=== PATIENT | male | born 1960 | race Caucasian/White ===

== ENCOUNTER 2016-10-12 19:01 | Emergency (ER) | payer OTHER ==
[~2016-10-12] VITALS: Ht 182.8 cm; Wt 100.2 kg
[~2016-10-12 19:01] MED LIST: ACARBOSE50 MG PO; ASPIRIN325 MG PO; BENADRYL25 M1 PO; CELLCEPT250 MG PO; CELLCEPT500 MG PO; CIPRO750 MG PO; COREG25 MG; COUMADIN0.5 M1 PO; CYMBALTA30 MG; CYMBALTA30 MG PO; ERGOCALCIFER50000 IU PO; FLOMAX0.4 MG; FLUTICAS P0.05 MG/AC NS; GABAPENTIN TAB600 MG; GABAPENTIN600 MG PO; GLIMEPIRIDE2 MG PO; INSULIN-HUMA100 U/ML; K-DUR20 MEQ; LANTUS100 U/ML SC; LASIX40 MG; LASIX40 MG PO; LISINOPRIL10 MG PO; LORTAB 7.5/5001 TA1; METOCLOPRAMIDE10 MG; NEXIUM40 MG; NEXIUM40 MG PO; NOVAPLUS TACROLI1 MG; OXYCODONE AND A1 T11 PO; PERIACTIN4 MG; PLAVIX75 MG; PRECOSE25 MG PO; PROGRAF1 MG PO; PROPRANOLOL HCL40 M1 PO; REGLAN10 MG PO; RESTORIL30 MG; SIMVASTATIN20 MG PO; SMZ-TMP 400 MG-1 TAB PO; STOOL SOFTENER100 MG PO; TEMAZEPAM30 MG PO; VICTOZA6 MG/ML SC; ZITHROMAX Z PA250 MG PO; ZOCOR20 MG PO
[2016-10-12 19:13] VITALS: BP 123/80
== END 2016-10-12 19:40 | disposition home or self-care (01) ==
LOC: ED 19:01
DX: E16.2 Hypoglycemia, unspecified (principal); Z79.899 Other long term (current) drug therapy; Z88.1 Allergy status to other antibiotic agents; Z88.8 Allergy status to other drugs, medicaments and biological substances

== ENCOUNTER → 2017-04-28 | Outpatient (CLI) | payer OTHER ==
[2017-04-28 10:28] LABS: BASO % 0.7 % (0.0-1.0); EOS # 0.2 10*3/uL (0.0-0.4); EOS % 3.3 % (1.0-4.0); HEMATOCRIT 38.1 % (42.0-52.0); HEMOGLOBIN 12.5 g/dl (14.0-18.0); LYMPH # 1.8 10*3/uL (1.3-4.4); LYMPH % 32.2 % (27.0-41.0); MEAN CELL VOLUME 88.4 fl (80.0-94.0); MEAN CORPUSCULAR HGB CONC 32.8 g/dl (33.0-37.0); MEAN PLATELET VOLUME 9.8 fl (9.6-12.3); MONO # 0.7 10*3/uL (0.1-1.0); MONO % 12.7 % (3.0-9.0); NEUT # 2.8 10*3/uL (2.3-7.9); NEUT % 50.9 % (47.0-73.0); PLATELET COUNT AUTOMATED 250 10*3/uL (130-400); RED BLOOD COUNT 4.31 10*6/uL (4.50-5.90); RED CELL DISTRI WIDTH 16.1 % (0-14.5); WHITE BLOOD COUNT 5.5 10*3/uL (4.8-10.8)
[2017-04-28 10:55] LABS: ALBUMIN 3.5 gm/dl (3.1-4.5); CREATININE 2.02 mg/dL (0.70-1.30); POTASSIUM 2.7 mmol/L (3.5-5.1); TOTAL PROTEIN 7.8 gm/dL (6.4-8.2)
[2017-04-28 11:41] LABS: VITAMIN D, 25-HYDROXY 34.3 ng/mL (30-100)
== END | disposition home or self-care (01) ==
LOC: LAB 09:50
PROVIDERS: Nurse Practitioner
DX: I10 Essential (primary) hypertension (principal); E10.29 Type 1 diabetes mellitus with other diabetic kidney complication; E11.9 Type 2 diabetes mellitus without complications; E83.51 Hypocalcemia; Z94.83 Pancreas transplant status; Z94.0 Kidney transplant status

== ENCOUNTER → 2017-07-28 | Outpatient (CLI) | payer OTHER ==
[2017-07-28 13:56] LABS: BASO % 0.7 % (0.0-1.0); EOS # 0.1 10*3/uL (0.0-0.4); EOS % 2.3 % (1.0-4.0); HEMOGLOBIN 11.6 g/dl (14.0-18.0); LYMPH # 0.8 10*3/uL (1.3-4.4); LYMPH % 18.5 % (27.0-41.0); MEAN CORPUSCULAR HGB 28.1 pg (27.0-31.0); MEAN CORPUSCULAR HGB CONC 30.5 g/dl (33.0-37.0); MONO # 0.5 10*3/uL (0.1-1.0); NEUT # 2.9 10*3/uL (2.3-7.9); NEUT % 67.3 % (47.0-73.0); PLATELET COUNT AUTOMATED 222 10*3/uL (130-400); RED BLOOD COUNT 4.13 10*6/uL (4.50-5.90); RED CELL DISTRI WIDTH 16.3 % (0-14.5); WHITE BLOOD COUNT 4.3 10*3/uL (4.8-10.8)
[2017-07-28 14:13] LABS: ALBUMIN 3.4 gm/dl (3.1-4.5); CREATININE 1.89 mg/dL (0.70-1.30); POTASSIUM 3.7 mmol/L (3.5-5.1); TOTAL PROTEIN 7.3 gm/dL (6.4-8.2)
[2017-07-28 15:36] LABS: PTH INTACT 50.9 pg/mL (14.0-72.0); VITAMIN D, 25-HYDROXY 39.8 ng/mL (30-100)
== END | disposition home or self-care (01) ==
LOC: LAB 13:24
PROVIDERS: Nurse Practitioner
DX: I10 Essential (primary) hypertension (principal); E10.29 Type 1 diabetes mellitus with other diabetic kidney complication; Z94.0 Kidney transplant status; E83.51 Hypocalcemia

== ENCOUNTER → 2017-11-05 | Outpatient (CLI) | payer OTHER ==
[2017-11-05 12:38] LABS: BASO % 0.7 % (0.0-1.0); EOS # 0.2 10*3/uL (0.0-0.4); EOS % 4.2 % (1.0-4.0); HEMATOCRIT 38.2 % (42.0-52.0); HEMOGLOBIN 12.1 g/dl (14.0-18.0); LYMPH # 0.9 10*3/uL (1.3-4.4); MEAN CELL VOLUME 93.2 fl (80.0-94.0); MEAN CORPUSCULAR HGB 29.5 pg (27.0-31.0); MEAN CORPUSCULAR HGB CONC 31.7 g/dl (33.0-37.0); MEAN PLATELET VOLUME 9.8 fl (9.6-12.3); MONO # 0.4 10*3/uL (0.1-1.0); MONO % 10.4 % (3.0-9.0); NEUT # 2.7 10*3/uL (2.3-7.9); NEUT % 64.2 % (47.0-73.0); PLATELET COUNT AUTOMATED 174 10*3/uL (130-400); RED CELL DISTRI WIDTH 16.2 % (0-14.5); WHITE BLOOD COUNT 4.3 10*3/uL (4.8-10.8)
[2017-11-05 12:42] LABS: ALBUMIN 3.7 gm/dl (3.1-4.5); CREATININE 2.23 mg/dL (0.70-1.30); TOTAL PROTEIN 7.7 gm/dL (6.4-8.2)
== END | disposition home or self-care (01) ==
LOC: LAB 11:42
PROVIDERS: Nurse Practitioner
DX: I10 Essential (primary) hypertension (principal); E10.29 Type 1 diabetes mellitus with other diabetic kidney complication; E83.51 Hypocalcemia; Z94.83 Pancreas transplant status; Z94.0 Kidney transplant status

== ENCOUNTER → 2018-04-03 | Outpatient (CLI) | payer OTHER, MEDICAID ==
[2018-04-03 13:14] LABS: BASO % 0.5 % (0.0-1.0); EOS # 0.2 10*3/uL (0.0-0.4); EOS % 5.6 % (1.0-4.0); HEMATOCRIT 40.2 % (42.0-52.0); HEMOGLOBIN 12.6 g/dl (14.0-18.0); LYMPH # 0.9 10*3/uL (1.3-4.4); MEAN CELL VOLUME 95.5 fl (80.0-94.0); MEAN CORPUSCULAR HGB 29.9 pg (27.0-31.0); MEAN CORPUSCULAR HGB CONC 31.3 g/dl (33.0-37.0); MONO # 0.5 10*3/uL (0.1-1.0); MONO % 13.6 % (3.0-9.0); NEUT # 2.2 10*3/uL (2.3-7.9); PLATELET COUNT AUTOMATED 172 10*3/uL (130-400); RED BLOOD COUNT 4.21 10*6/uL (4.50-5.90); RED CELL DISTRI WIDTH 15.7 % (0-14.5); WHITE BLOOD COUNT 3.9 10*3/uL (4.8-10.8)
[2018-04-03 13:36] LABS: ALBUMIN 3.5 gm/dl (3.1-4.5); CREATININE 2.23 mg/dL (0.70-1.30); POTASSIUM 3.9 mmol/L (3.5-5.1); TOTAL PROTEIN 7.6 gm/dL (6.4-8.2)
[2018-04-03 14:05] LABS: PTH INTACT 62.7 pg/mL (18.5-88.0); VITAMIN D, 25-HYDROXY 33.7 ng/mL (30-100)
== END | disposition home or self-care (01) ==
LOC: LAB 12:22
PROVIDERS: Nurse Practitioner
DX: I10 Essential (primary) hypertension (principal); E10.29 Type 1 diabetes mellitus with other diabetic kidney complication; E83.51 Hypocalcemia; Z94.83 Pancreas transplant status; Z94.0 Kidney transplant status

== ENCOUNTER → 2018-07-16 | Outpatient (CLI) | payer OTHER, MEDICAID ==
[2018-07-16 10:46] LABS: BASO % 0.7 % (0.0-1.0); EOS # 0.2 10*3/uL (0.0-0.4); EOS % 5.4 % (1.0-4.0); HEMATOCRIT 39.2 % (42.0-52.0); HEMOGLOBIN 12.5 g/dl (14.0-18.0); LYMPH # 1.5 10*3/uL (1.3-4.4); LYMPH % 34.3 % (27.0-41.0); MEAN CELL VOLUME 95.4 fl (80.0-94.0); MEAN CORPUSCULAR HGB 30.4 pg (27.0-31.0); MEAN CORPUSCULAR HGB CONC 31.9 g/dl (33.0-37.0); MONO # 0.5 10*3/uL (0.1-1.0); MONO % 11.7 % (3.0-9.0); NEUT % 47.7 % (47.0-73.0); PLATELET COUNT AUTOMATED 153 10*3/uL (130-400); RED BLOOD COUNT 4.11 10*6/uL (4.50-5.90); RED CELL DISTRI WIDTH 15.5 % (0-14.5); WHITE BLOOD COUNT 4.3 10*3/uL (4.8-10.8)
[2018-07-16 11:11] LABS: ALBUMIN 3.2 gm/dl (3.1-4.5); CREATININE 2.05 mg/dL (0.70-1.30); POTASSIUM 3.2 mmol/L (3.5-5.1); TOTAL PROTEIN 7.1 gm/dL (6.4-8.2)
== END | disposition home or self-care (01) ==
LOC: LAB 10:06
PROVIDERS: Nurse Practitioner
DX: I10 Essential (primary) hypertension (principal); E10.29 Type 1 diabetes mellitus with other diabetic kidney complication; Z94.83 Pancreas transplant status; E83.51 Hypocalcemia; Z94.0 Kidney transplant status